=== PATIENT | female | born 1990 | race Caucasian/White ===

== ENCOUNTER 2021-10-10 19:00 | Emergency (ER) | payer MEDICAID ==
[~2021-10-10] VITALS: Ht 167.6 cm; Wt 61.4 kg
[~2021-10-10 19:00] MED LIST: IBUP-1985 PO; PROC-8 PO
[2021-10-10 19:13] VITALS: BP 148/94
[2021-10-10] MEDS ORDERED: clindamycin 150mg capsule PO ONE (20:35)
[2021-10-10] MEDS ORDERED: metroNIDAZOLE 500mg tablet PO ONE (20:35)
[2021-10-10] MEDS ORDERED: ketorolac trometh. 30mg/ml inj. IM ONE (20:35)
[2021-10-10] MEDS ORDERED: CLIN300C70 PO (20:52)
[2021-10-10] MEDS ORDERED: METR-159 PO (20:52)
[2021-10-10] MEDS ORDERED: IBUP-1984 PO (20:52)
== END 2021-10-10 21:05 | disposition home or self-care (01) ==
LOC: ER 19:01
DX: K04.7 Periapical abscess without sinus (principal); K21.9 Gastro-esophageal reflux disease without esophagitis
CPT/HCPCS: 96372; 99283; J1885